=== PATIENT | male | born 1960 | race Two or more races ===

== ENCOUNTER 2023-11-05 06:47 | Day surgery (SDC) | payer OTHER ==
[2023-11-05] VITALS (8 sets, daily range): BP systolic 102–154; BP diastolic 71–92; PULSE 50–67; RESP 13–18; O2SAT 94–98
[~2023-11-05] VITALS: Ht 180.3 cm; Wt 128.8 kg
[~2023-11-05 06:47] MED LIST: CARI-578 PO; FINA5TAB4 PO; GABA-339 PO; GEMF-66 PO; HYDR-4798 PO; IBUP-1456 PO; INSU1.2I SC; LORA-35 PO; LOSA-533 PO; LOVA20TA4 PO; METF-370 PO; MONT-8 PO; NITR0.4S29 SL; PANT40TA2 PO; TERA5CAP42 PO; TOPI25CA5 PO
[2023-11-05] MEDS ORDERED: fentaNYL CITRATE 100 MCG/2 ML VL ONE (08:51)
[2023-11-05] MEDS ORDERED: VERAPAMIL 2.5MG/ML INJ 2ML VIAL IV ONE (08:51)
[2023-11-05] MEDS ORDERED: HEPARIN SODIUM (PORCINE) 5000 UNITS/ML 1ML VIAL ONE (08:51)
[2023-11-05] MEDS ORDERED: ANGIOMAX 250 MG VIAL IV ONE (08:51)
[2023-11-05] MEDS ORDERED: MIDAZOLAM HCL 2MG/2ML 2ml VIAL (1mg/ml) ONE (08:51)
[2023-11-05] MEDS ORDERED: SODIUM CHL 0.9% 50 ML ONE (08:52)
[2023-11-05] MEDS ORDERED: ATROPINE SULF 1 MG/10ml SYR ONE (09:19)
[2023-11-05] MEDS ORDERED: IODIXANOL 320MG/ML 100ML BTL IV ONE (09:23)
[2023-11-30] MEDS ORDERED: FEXO-226 PO (10:01)
[2023-11-30] MEDS ORDERED: CLOP75TA28 PO (10:04)
== END 2023-11-05 12:53 | disposition home or self-care (01) ==
LOC: CATH 06:47
PROVIDERS: ATTEND Internal Medicine
DX: R94.39 Abnormal result of other cardiovascular function study (principal); R07.9 Chest pain, unspecified; I25.118 Atherosclerotic heart disease of native coronary artery with other forms of angina pectoris; I10 Essential (primary) hypertension; E11.9 Type 2 diabetes mellitus without complications; E78.00 Pure hypercholesterolemia, unspecified; Z79.84 Long term (current) use of oral hypoglycemic drugs; Z79.899 Other long term (current) drug therapy; Z96.641 Presence of right artificial hip joint; Z98.890 Other specified postprocedural states; Z87.891 Personal history of nicotine dependence; Z83.3 Family history of diabetes mellitus; Z83.42 Family history of familial hypercholesterolemia; Z82.49 Family history of ischemic heart disease and other diseases of the circulatory system
CPT/HCPCS: 92920; 93005; 93458; C1725; C1769; C1887; C1894; J0583; J2250; J3010; J7030; Q9967; 92928; 99152; 99153

== ENCOUNTER 2023-12-03 06:25 | Day surgery (SDC) | payer OTHER ==
[2023-12-03] VITALS (11 sets, daily range): BP systolic 128–170; BP diastolic 47–88; PULSE 59–79; RESP 12–19; TEMP 99.1; O2SAT 94–98
[~2023-12-03] VITALS: Ht 180.3 cm; Wt 128.4 kg
[~2023-12-03 06:25] MED LIST changes: +CLOP75TA28 PO; +FEXO-226 PO; -LORA-35 PO; -LOSA-533 PO
[2023-12-03] MEDS ORDERED: IODIXANOL 320MG/ML 100ML BTL IV ONE ×2 (07:40→08:50)
[2023-12-03] MEDS ORDERED: HEPARIN IN NS 1000Units/500mL 1,500 ML ONE (07:40)
[2023-12-03] MEDS ORDERED: LIDOCAINE 2%HCL (LOCAL ANESTH.) INJ 20ML MDV ONE (07:40)
[2023-12-03] MEDS ORDERED: MIDAZOLAM HCL 2MG/2ML 2ml VIAL (1mg/ml) ONE (08:08)
[2023-12-03] MEDS ORDERED: ANGIOMAX 250 MG VIAL IV ONE (08:08)
[2023-12-03] MEDS ORDERED: fentaNYL CITRATE 100 MCG/2 ML VL ONE (08:08)
[2023-12-03] MEDS ORDERED: SODIUM CHL 0.9% 50 ML ONE (08:08)
[2023-12-03] MEDS ORDERED: ATROPINE SULF 1 MG/10ml SYR ONE (08:41)
[2023-12-03] MEDS ORDERED: HEPARIN 1,000 UNITS/ml 1ML VIAL ONE (08:48)
[2023-12-03] MEDS ORDERED: HEPARIN SODIUM (PORCINE) 5000 UNITS/ML 1ML VIAL ONE (08:48)
[2023-12-03] MEDS ORDERED: ASPirin 81 mg TAB ONE (09:27)
[2023-12-03] MEDS ORDERED: CLOPIDOGREL BISULFATE 75 MG TAB ONE (09:28)
== END 2023-12-03 16:05 | disposition home or self-care (01) ==
LOC: CATH 06:25
PROVIDERS: ATTEND Internal Medicine
DX: I25.118 Atherosclerotic heart disease of native coronary artery with other forms of angina pectoris (principal); I10 Essential (primary) hypertension; E11.9 Type 2 diabetes mellitus without complications; Z83.3 Family history of diabetes mellitus; Z83.42 Family history of familial hypercholesterolemia; Z82.49 Family history of ischemic heart disease and other diseases of the circulatory system; Z87.891 Personal history of nicotine dependence
CPT/HCPCS: 76937; 93005; C1724; C1725; C1760; C1769; C1874; C1887; C1894; C9602; J0583; J1644; J2250; J3010; Q9967; 99152; 99153

== ENCOUNTER 2025-01-20 06:06 | Inpatient (IN) | payer OTHER ==
[2025-01-20] VITALS (7 sets, daily range): BP systolic 100–137; BP diastolic 68–78; PULSE 88–92; RESP 17–20; TEMP 97.9–98.9; O2SAT 94–98
[~2025-01-20] VITALS: Ht 180.3 cm; Wt 151.0 kg
[~2025-01-20 06:06] MED LIST changes: +ALL300T GT; +ASPI81CH59 PO; +COLC1CAP PO; +TIRZ2.5I SC
[2025-01-20] MEDS: GABAPENTIN 300 MG CAP ONE (06:59)
[2025-01-20] MEDS: CELECOXIB 100 MG CAP ONE (06:59)
[2025-01-20] MEDS: GABAPENTIN 300 MG CAP PO ONE (07:00)
[2025-01-20] MEDS: CELECOXIB 100 MG CAP PO ONE (07:00)
[2025-01-20] MEDS: ACETAMINOPHEN IV 1000 MG/100ML (10MG/ML) IV ONE (07:00)
[2025-01-20] MEDS ORDERED: PROPOFOL 10 MG/ML 20 ML IV ONE ×4 (07:10→09:13)
[2025-01-20] MEDS ORDERED: LIDOCAINE 1% INJ PF 5ML AMP ONE (07:10)
[2025-01-20] MEDS ORDERED: GLYCOPYRROLATE 0.2 MG/ML 1ML VIAL ONE (07:10)
[2025-01-20] MEDS ORDERED: ONDANSETRON HCL 4 MG/2 ML VIAL ONE (07:10)
[2025-01-20] MEDS ORDERED: KETOROLAC TROMETH 30 MG/ML 1ML VIAL ONE (07:10)
[2025-01-20] MEDS ORDERED: DexAMETHasone SOD PHOS 10MG/1ML VIAL INJ ONE ×2 (07:10→07:11)
[2025-01-20] MEDS ORDERED: EPINEPHrine HCL 1 MG/1 ML AMP ONE (07:11)
[2025-01-20] MEDS ORDERED: KETAMINE 50mg/ML 1ml syringe ONE (07:11)
[2025-01-20] MEDS ORDERED: ceFAZolin 1GM VL ONE (07:11)
[2025-01-20] MEDS: ACETAMINOPHEN IV 100 ML IV ONE (07:18)
[2025-01-20] MEDS: ceFAZolin 2 GM/D5W50ml 50 ML IV ONE (07:19)
[2025-01-20] MEDS: CEFEPIME 1GM/ 50ML 50 ML IV ONE (07:19)
[2025-01-20] MEDS: TRANEXAMIC ACID 20 ML ONE (07:20)
[2025-01-20] MEDS ORDERED: ePHEDrine SULFATE 50 MG/ML AMP ONE (07:50)
[2025-01-20] MEDS: VANCOMYCIN HCL 1000 MG VL ONE (07:51)
[2025-01-20] MEDS ORDERED: PHENYLEPHRINE HCL 10 MG/ML VL ONE (08:08)
[2025-01-20] MEDS ORDERED: SODIUM CHLORIDE LOCK 10 ML ONE (08:08)
--- NOTE | 2025-01-20 09:21 | DVH ---
CLINICAL INDICATION: INTRAOP TECHNIQUE: 1 radiographic views of the left hip were obtained. Comparison: None FINDINGS/IMPRESSION: Postsurgical changes from left hip arthroplasty.
--- NOTE | 2025-01-20 09:26 | DVHOP2 ---
Operative Report - 2 Report Details Date: 01/20/25 Preop Diagnosis: Left hip degenerative arthritis Postop Diagnosis: Left hip degenerative arthritis Surgeon: Lon Hartley MD Strategic Accounts Manager: Anthony BARRAGAN Anesthesiologist: Willian Boland CRNA Anesthesia: Regional Drains: Alejandra closed wound suction Implant: enovis size six nebula stem, plus four neck with 36 ceramic head, flat polyethylene liner, 52 acetabular shell Consent: The patient was informed of the risks and benefits of the procedure. These include but are not limited to complications of anesthesia, postoperative infection, incomplete relief of symptoms, recurrence of symptoms, damage to blood vessels, nerves and tendons, deep venous thrombosis, pulmonary embolism and possible need for repeat surgery in the future. Complications: None Estimated Blood Loss: 100 cc Fluids: See anesthesia record Findings: Head deformity, osteophytes, denuded cartilage with eburnated bone Indications for Surgery: Left hip degenerative arthritis with severe pain and functional impairment despite nonoperative management Name of Procedure Performed Left total hip arthroplasty Procedure Details Procedure Details: The patient was brought to the operating room and given spinal anesthetic with adequate analgesia obtained. The patient was positioned lateral decubitus with the operative side up, stabilized with hip positioners. Axillary roll applied and lower extremities well-padded. Preop patient received IV Ancef, cefepime and IV tranexamic acid. Surgical timeout was performed verifying patient, laterality and procedure. The hip and lower extremity were prepped and draped in sterile fashion. Incision was made over the greater trochanter. Subcutaneous dissection and hemostasis were performed with Bovie and aqua mantis. I identified the fascia which was incised with Bovie and Charnley retractor inserted. I identified the gluteus medius that was split at the junction of its anterior and middle thirds with Bovie then incised off the ant erior greater trochanter. I incised the anterior gluteus minimus which was elevated off the capsule. I elevated the reflected head of the rectus. I then performed anterior capsulectomy with Bovie. I extended capsular incision posterior medially and superior laterally. The head was dislocated. Femoral neck cut was made with saw and head removed. Head diameter was calipered on the back table. I adjusted retractors to expose the acetabulum. I circumferentially removed labral tissue with Bovie. I removed foveal tissue with Bovie, curette and rongeur. I then began reaming sequentially paying attention to inclination and version as I went. I trialed which was stable so acetabular implant was brought into the field and tapped into the acetabulum with good fixation achieved. I used the small screw to fill the hole at the insertion point. I then brought up the flat liner which was spun to make sure there was no soft tissue entrapment then tapped in and stability verified. I then brought my attention to the proximal femur. The leg was placed in the sterile bag anteriorly. I cleaned up soft tissue at the greater trochanter mou ldlester with Bovie. I then used a rongeur to clip the lateral neck. I then used a box osteotome, canal finder and lateralizing rasp. I sequentially broached to size 5. I revised the femoral neck cut with calcar planer. I trialed with a 0 and plus four neck length and [36] head which was stable with the plus four. Intraoperative AP pelvis x-ray was obtained to verify length, offset and implant size. It was a touch long in the stem a bit small so I decided to up size the stem. The hip was dislocated. I used a five broach to tap it a little bit deeper and then again used a calcar planer. Broach was removed. I tapped in the size six femoral implant with good fixation achieved. I cleaned and dried the Mena taper and tapped on the ceramic head with the plus four neck after 1st trialing with a 0 and plus four neck length. The hip was not stable with a 0 neck.. The hip was again reduced and again tested for stability which was good. I irrigated with biosurge. I placed a 2 grams of vancomycin in the deep and superficial wound. I repaired the minimus and medius to the anterior greater trochanter with #[5] FiberWire in running fashion . I oversewed the repair with 0 Vicryl. I repaired the fascia with #1 Ethibond interrupted [id number]. Deep subcutaneous tissue was closed with 0 Vicryl. Superficial subcutaneous tissue was closed with 2-0 Vicryl. The skin was closed with corazon. I then applied the Alejandra closed wound suction. Patient tolerated the procedure well and was brought to the recovery room in stable condition. Condition Stable Disposition Still a Patient LON HARTLEY MD Jan 20, 2025 09:26
[2025-01-20] MEDS ORDERED: NITROGLYCERIN 0.4 MG SL TAB SL SCH (09:30)
[2025-01-20] MEDS ORDERED: MORPHINE SULFATE INJ 2 MG/ml SYRG IV PRN (09:30)
[2025-01-20] MEDS ORDERED: DEXTROSE (50%) 50ML SYRG IV PRN (09:30)
[2025-01-20] MEDS ORDERED: ONDANSETRON HCL 4 MG/2 ML VIAL IV PRN ×2 (09:30→10:00)
[2025-01-20] MEDS ORDERED: NITROGLYCERIN 0.4 MG SL TAB SL PRN (09:30)
[2025-01-20] MEDS ORDERED: HYDROmorphone HCL 2 MG/ML VL/or syr IV PRN (10:00)
[2025-01-20] MEDS ORDERED: fentaNYL CITRATE 100 MCG/2 ML VL IV PRN (10:00)
[2025-01-20] MEDS ORDERED: hydrALAZINE HCL 20 MG/ML VL IV PRN (10:00)
[2025-01-20] MEDS: FEXOFENADINE HCL 60 MG TAB PO SCH (10:00)
[2025-01-20] MEDS ORDERED: ePHEDrine SULFATE 50 MG/ML AMP IV PRN (10:00)
[2025-01-20] MEDS ORDERED: NALOXONE HCL 0.4 MG/ML VIAL IV PRN (10:00)
[2025-01-20] MEDS ORDERED: FLUMAZENIL 0.1 MG/ML INJ 10ML MDV IV PRN (10:00)
--- NOTE | 2025-01-20 10:25 | DVH ---
CLINICAL INDICATION: postop TECHNIQUE: 2 radiographic views of the pelvis were obtained. Comparison: None FINDINGS/IMPRESSION: There is no evidence of acute fracture or dislocation. Status post bilateral hip arthroplasty.
[2025-01-20] MEDS: ACCU-CHEK COMFORT CURVE STRIP VI SCH (11:00)
[2025-01-20] MEDS: PREGABALIN 25 MG CAP PO SCH (11:02)
[2025-01-20] MEDS: oxyCODONE HCL 5MG TAB PO PRN ×3 (11:04→17:27)
[2025-01-20] MEDS: oxyCODONE HCL 5MG TAB ONE (11:09)
[2025-01-20] MEDS: SODIUM CHLORIDE 0.9% 1,000 ML IV SCH (11:30)
[2025-01-20] MEDS: ACETAMINOPHEN 325 MG TAB PO SCH (12:00)
[2025-01-20] MEDS: InsuLIN REG 1unit/0.01ml Soln (100units/ml) SC SCH ×2 (12:52→22:34)
[2025-01-20] MEDS: FINASTERIDE 5 MG TAB PO SCH (15:15)
[2025-01-20] MEDS: PANTOPRAZOLE 40 MG TAB PO SCH (15:16)
[2025-01-20] MEDS: KETOROLAC TROMETH 30 MG/ML 1ML VIAL IV SCH (15:17)
[2025-01-20] MEDS: ceFAZolin 2 GM/D5W50ml 50 ML IV SCH (15:18)
[2025-01-20] MEDS: GEMFIBROZIL 600 MG TAB PO SCH (15:19)
[2025-01-20] MEDS: metFORMIN HYDROCHLORIDE 500 MG TAB PO SCH (17:33)
[2025-01-20] MEDS: HYDROmorphone HCL 2 MG/ML VL/or syr IV PRN (20:44)
[2025-01-20] MEDS: TERAZOSIN HCL 5 MG CAP PO SCH (22:26)
[2025-01-20] MEDS: MONTELUKAST SODIUM 10 MG TAB PO SCH (22:26)
[2025-01-21] VITALS (8 sets, daily range): BP systolic 130–157; BP diastolic 56–68; PULSE 66–76; RESP 18–19; TEMP 97.8–98.8; O2SAT 94–98
[2025-01-21 06:01] LABS: Basophils # (auto) 0.1 10 ^3/uL (0-0.2); Basophils % (auto) 0.4 % (0.0-2.0); Eosinophils # (auto) 0 10 ^3/uL (0-0.8); Hematocrit 30.8 % (41.0-53.0); Hemoglobin 10.2 g/dL (13.5-17.5); Lymphocytes # (auto) 1.5 10 ^3/uL (0.4-5.4); Lymphocytes % (auto) 11.1 % (10.0-50.0); Mean Corpuscular Hemoglobin 27.4 pg (28.0-32.0); Monocytes # (auto) 1.3 10 ^3/uL (0-1.3); Monocytes % (auto) 9.7 % (0.0-12.0); Neutrophils # (auto) 10.8 10 ^3/uL (1.6-8.6); Neutrophils % (auto) 78.8 % (37.0-80.0); Platelet Count (auto) 294 10^3/uL (140-450); Red Cell Distribution Width 14.5 % (11.8-14.3); White Blood Cell 13.7 10^3/uL (4.4-10.8)
[2025-01-21 06:13] LABS: Potassium 4.1 mmol/L (3.5-5.1); Sodium 140 mmol/L (136-145)
[2025-01-21 06:14] LABS: Anion Gap 12 (5-15)
[2025-01-21 06:20] LABS: BUN/Creatinine Ratio 14.9 (10.0-20.0); Blood Urea Nitrogen 20 mg/dL (9-23)
[2025-01-21 06:23] LABS: Carbon Dioxide 20 mmol/L (20-31); Chloride 108 mmol/L (98-107); Glucose 121 mg/dL (74-106)
[2025-01-21 06:24] LABS: Calcium 8.5 mg/dL (8.7-10.4)
[2025-01-21] MEDS ORDERED: oxyCODONE HCL 5MG TAB PO PRN (08:30)
[2025-01-21] MEDS: APIXABAN 2.5 MG TAB PO SCH (09:24)
[2025-01-21] MEDS: ALLOPURINOL 100 MG TAB PO SCH (09:24)
[2025-01-21] MEDS: HYDROmorphone HCL 2 MG/ML VL/or syr IV PRN (09:40)
[2025-01-21] MEDS ORDERED: ALLOPURINOL 100 MG TAB GT SCH (10:00)
--- NOTE | 2025-01-21 16:54 | DVHINCON2 ---
Date Seen: Jan 21, 2025 Referring Physician Orthopedic surgeon. Reason for Consultation Medical management. History of Present Illness 64-year-old male with a known history of coronary artery disease with a status post PCI to RCA with three stents, hypertension, dyslipidemia, insulin-dependent diabetes mellitus type 2, BPH, history of gout who was brought in by orthopedics for elective surgery for left hip. Patient does have known history of left hip degenerative joint disease. Patient underwent successful left total hip arthroplasty. Patient currently denies any complaints besides hip pain. Past Medical History Insulin-dependent diabetes mellitus type 2 Hypertension Dyslipidemia Gout CAD status post PCI to RCA with three stents. Past Surgical History Coronary artery disease status post PCI to RCA with three stents Status post right hip arthroplasty in the past Left FERNANDA this admission. Family History: FH: cancer G8 FATHER Allergies: Coded Allergies: Morphine (Verified Allergy, Unknown, hypotension, 11/30/23) Home Meds Reported Medications Tirzepatide (Mounjaro) 2.5 Mg/0.5 Ml Inj, 2.5 MG SC QWEEKLY, INJ 01/16/25 Aspirin (Aspirin Low Dose) 81 Mg Chw, 81 MG PO DAILY, TAB.CHEW 01/16/25 Colchicine (Colchicine) 0.6 Mg Cap, 0.6 MG PO BID, CAP 01/16/25 Allopurinol (ZYLOPRIM TABLET) 300 Mg Tb, 300 MG GT DAILY, TAB 01/16/25 Clopidogrel Bisulfate (Plavix) 75 Mg Tab, 1 TAB PO DAILY for CAD, #90 TAB 1 Refill 11/30/23 Fexofenadine Hcl (Fexofenadine Hcl) 60 Mg Tab, 60 MG PO BID for ALLERGIES, MG 11/30/23 Pantoprazole Sodium Sesquihydr (Protonix) 40 Mg Tab, 40 MG PO DAILY for GERD 11/02/23 Topiramate (Topiramate) 25 Mg Cap, 25 MG PO BID for MIGRAINE 11/02/23 Montelukast Sodium (MONTELUKAST SODIUM) 10 Mg Tab, 1 TAB PO DAILY for ALLERGIES 11/02/23 Finasteride (Finasteride) 5 Mg Tab, 5 MG PO DAILY for BPH 11/02/23 Terazosin Hcl (Terazosin Hcl) 5 Mg Cap, 5 MG PO HS for BPH 11/02/23 Insulin Glargine (Toujeo Solostar) 300 Unit/Ml Inj, 100 UNIT SC BID for DIABETES, INJ 11/02/23 Ibuprofen (Ibuprofen) 800 Mg Tab, 800 MG PO PRN, MG 11/02/23 Lovastatin (Lovastatin) 20 Mg Tab, 1 TAB PO DAILY for HIGH CHOLESTEROL 11/02/23 Metformin Hydrochloride (Metformin Hcl) 500 Mg Tab, 1 TAB PO BID for DIABETES 11/02/23 Gabapentin (Gabapentin) 600 Mg Tab, 600 MG PO TID for NEUROPATHY 11/02/23 Hydrocodone-Acetaminophen (Hydrocodone Bitartrate/AC 10-325 mg) 1 Tab Tab, 1 TAB PO Q6HP PRN for MODERATE PAIN (4-6 PAIN SCALE) 11/02/23 Carisoprodol (Carisoprodol) 350 Mg Tab, 350 MG PO Q6HR for MUSCLE RELAXANT 11/02/23 Gemfibrozil (Gemfibrozil) 600 Mg Tab, 600 MG PO BID for HIGH CHOLESTEROL 11/02/23 Nitroglycerin (NTROSTAT SUBLINGUAL) 0.4 Mg Sl, 0.4 MG SL PRN, TAB *MAY REPEAT EVERY 5 MINUTES X 3 TOTAL IF NO RELIEF, INITIATE ANALGESIC THERAPY. NOTIFY PHYSICIAN *Do not crush. 11/02/23 Current Medications Current Medications Medications (Trade) Dose Ordered Sig/Virgilio Route PRN Reason Start Time Stop Time Status Last Admin Metformin HCl (Glucophage) 500 mg BIDD PO 01/20/25 18:00 01/21/25 06:13 Montelukast Sodium (Singulair Tablet) 10 mg HS PO 01/20/25 22:00 01/20/25 22:26 Terazosin HCl (Hytrin) 5 mg HS PO 01/20/25 22:00 01/20/25 22:26 Apixaban (Eliquis) 2.5 mg BID PO 01/21/25 10:00 02/25/25 09:59 01/21/25 09:24 Insulin Human Regular (InsuLIN R) HS SC 01/20/25 22:00 01/20/25 22:34 Allopurinol (Zyloprim Tablet) 300 mg DAILY GT 01/21/25 10:00 01/20/25 12:37 DC Allopurinol (Zyloprim Tablet) 300 mg DAILY PO 01/21/25 10:00 01/21/25 09:24 Hydromorphone HCl (Dilaudid Injection) 1 mg Q2HPRN PRN IV SEVERE PAIN (7-10 PAIN SCALE) 01/20/25 20:30 01/21/25 08:27 DC 01/21/25 06:16 Hydromorphone HCl (Dilaudid Injection) 1 mg Q4HPRN PRN IV SEVERE PAIN (7-10 PAIN SCALE) 01/21/25 08:30 01/21/25 15:39 Oxycodone HCl 10 mg Q4HP PRN PO SEVERE PAIN (7-10 PAIN SCALE) 01/21/25 08:30 Review of Systems Twelve review of system were negative except mentioned above. 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 Labs/Diagnostic Data Labs Test 01/21/25 11:55 01/21/25 05:05 Range/Units POC Glucose 98 70-106 mg/dl White Blood Count 13.7 H 4.4-10.8 10^3/uL Red Blood Count 3.70 L 4.5-5.90 10^6/uL Hemoglobin 10.2 L 13.5-17.5 g/dL Hematocrit 30.8 L 41.0-53.0 % Mean Corpuscular Volume 83.0 80.0-100.0 fL Mean Corpuscular Hemoglobin 27.4 L 28.0-32.0 pg Mean Corpuscular Hemoglobin Concent 33.0 32.0-36.0 g/dL Red Cell Distribution Width 14.5 H 11.8-14.3 % Platelet Count 294 140-450 10^3/uL Mean Platelet Volume 7.2 6.9-10.8 fL Neutrophils (%) (Auto) 78.8 37.0-80.0 % Lymphocytes (%) (Auto) 11.1 10.0-50.0 % Monocytes (%) (Auto) 9.7 0.0-12.0 % Eosinophils (%) (Auto) 0.0 0.0-7.0 % Basophils (%) (Auto) 0.4 0.0-2.0 % Neutrophils # (Auto) 10.8 H 1.6-8.6 10 ^3/uL Lymphocytes # (Auto) 1.5 0.4-5.4 10 ^3/uL Monocytes # (Auto) 1.3 0-1.3 10 ^3/uL Eosinophils # (Auto) 0 0-0.8 10 ^3/uL Basophils # (Auto) 0.1 0-0.2 10 ^3/uL Nucleated Red Blood Cells 0.0 % Sodium Level 140 136-145 mmol/L Potassium Level 4.1 3.5-5.1 mmol/L Chloride Level 108 H 98-107 mmol/L Carbon Dioxide Level 20 20-31 mmol/L Anion Gap 12 5-15 Blood Urea Nitrogen 20 9-23 mg/dL Creatinine 1.34 H 0.700-1.30 mg/dL Glomerular Filtration Rate Calc 60 >90 mL/min BUN/Creatinine Ratio 14.9 10.0-20.0 Serum Glucose 121 H 74-106 mg/dL Calcium Level 8.5 L 8.7-10.4 mg/dL Assessment 64-year-old male with a known history of CAD status post PCI to RCA three stents, hypertension, insulin-dependent diabetes mellitus type 2, dyslipidemia, history of gout, BPH who was brought in by orthopedics for elective left total hip arthroplasty. 1. Coronary artery disease status post PCI to RCA with three stents in the past 2. Hypotension 3. Insulin-dependent diabetes mellitus type 2 4. Dyslipidemia 5. History of gout 6. BPH 7. Degenerative joint disease of the left hip status post left total hip arthroplasty. -pain meds as needed, physical therapy evaluation and treatment Resume home medication Discharge plan per Orthopedics. Plan discussed with: Patient, Other Date of Service: Jan 21, 2025 Billing Provider: ANDRE REDDING MD Common Visit Codes: NOT BILLABLE ANDRE REDDING MD Jan 21, 2025 16:54
--- NOTE | 2025-01-21 20:16 | DVHPN2 ---
Progress Note Progress Note S: Patient seen and examined. Pain well controlled 03/08 today. Denies chest or shortness of breath. Denies numbness, paresthesias or weakness. O: AFVSS Exam: NAD, a+ox4, unlabored breathing LLE: dressings c/d/I; fires Q/HS/EHL/FHL/TA/GS muscles; SILT L3-S1; BCR; 2+ DP and PT pulses; BCR A/P: POD#1 s/p L FERNANDA -IV ABX x 24 hours -DVT ppx: SCDs; Blood thinner as prescribed per protocol -Pain control with hospitalist -WBAT, posterior hip precaution Did physical therapy today The patient will be ready to be discharged once pain is controlled , possible tomorrow Plan discussed with: Patient Visit Coding Surgery Date of Service if different f: Jan 21, 2025 Billing Provider: MASSIMO JACOBSEN Surgery Visit Codes: [id number] INP/OBS CARE(MOD) MASSIMO JACOBSEN Jan 21, 2025 20:15
[2025-01-22] VITALS (7 sets, daily range): BP systolic 108–159; BP diastolic 52–72; PULSE 70–79; RESP 18–19; TEMP 97.6–98.4; O2SAT 94–98
--- NOTE | 2025-01-22 10:46 | DVHPN2 ---
Progress Note - Dictate Date Seen: Jan 22, 2025 Medical Necessity Reason Pt with a Central, PICC or Fol: Yes The following are medically ne: Edgar Catheter Subjective Patient was lying comfortably in bed during my evaluation reports some postoperative hip pain that is being well managed with the help of pain medication. Patient notes that his pain is better controlled today than yesterday and was able to get up and walk with the help of physical therapy and his walker and was able to get down the villarreal right to the nurse's station and back to his room with some postoperative hip pain. Patient was otherwise feeling well denying any other complaint or concern during my evaluation and is ready to go home. vital signs Vital Sign Date Time Temp Pulse Resp B/P (MAP) Pulse Ox O2 Delivery O2 Flow Rate FiO2 01/22/25 08:36 97.6 79 18 108/72 (84) 96 97.6 01/22/25 08:00 Room Air* 0 21 Total Intake and Output 01/21/25 01/21/25 01/22/25 14:59 22:59 06:59 Intake Total 2410 ml 650 ml Output Total 100 ml 1650 ml Balance 2310 ml -1000 ml medications Current Medications Medications Dose Ordered Sig/Virgilio Route Start Time Stop Time Status Last Admin Dose Admin Fexofenadine HCl 60 mg BID PO 01/20/25 10:00 01/21/25 23:44 60 MG Finasteride 5 mg DAILY PO 01/20/25 10:00 01/22/25 08:20 5 MG Gemfibrozil 600 mg BID PO 01/20/25 10:00 01/22/25 08:21 600 MG Metformin HCl 500 mg BIDD PO 01/20/25 18:00 01/22/25 06:46 500 MG Montelukast Sodium 10 mg HS PO 01/20/25 22:00 01/21/25 23:45 10 MG Pantoprazole Sodium 40 mg DAILY PO 01/20/25 10:00 01/22/25 08:20 40 MG Terazosin HCl 5 mg HS PO 01/20/25 22:00 01/21/25 23:42 5 MG Patient Own Medication 300 mg DAILY GT 01/20/25 10:00 UNV Pregabalin 50 mg BID PO 01/20/25 10:00 01/22/25 08:28 50 MG Apixaban 2.5 mg BID PO 01/21/25 10:00 02/25/25 09:59 01/22/25 08:20 2.5 MG Sodium Chloride 1,000 ml @ 125 mls/hr Q8H IV 01/20/25 11:30 01/22/25 04:56 125 MLS/HR Acetaminophen 650 mg Q6HP PO 01/20/25 12:00 01/22/25 06:49 650 MG Ketorolac Tromethamine 15 mg Q6HR IV 01/20/25 12:00 01/25/25 11:59 01/21/25 23:43 15 MG Ondansetron HCl 4 mg Q4HP PRN IV 01/20/25 09:30 Oxycodone HCl 5 mg Q4HP PRN PO 01/20/25 11:30 01/22/25 06:50 5 MG Nitroglycerin 0.4 mg Q5MINP PRN SL 01/20/25 09:30 Morphine Sulfate 2 mg Q30M PRN IV 01/20/25 09:30 Hold Diagnostic Test (Pha) 1 strip ACHS 01/20/25 11:30 01/22/25 06:55 1 STRIP Insulin Human Regular HS SC 01/20/25 22:00 01/20/25 22:34 2 UNITS Insulin Human Regular AC SC 01/20/25 11:30 01/20/25 17:58 6 UNITS Dextrose 50 ml UD PRN IV 01/20/25 09:30 Allopurinol 300 mg DAILY PO 01/21/25 10:00 01/22/25 08:19 300 MG Hydromorphone HCl 1 mg Q4HPRN PRN IV 01/21/25 08:30 01/22/25 08:30 1 MG Oxycodone HCl 10 mg Q4HP PRN PO 01/21/25 08:30 objective A&O x4 in no acute distress Hip range of motion grossly limited with pain on movement Alejandra dressing clean, dry, intact, and maintaining suction No distal edema or calf tenderness to palpation Neurovascularly intact with cap refill less than 2 seconds laboratory and microbiology Laboratory Tests 01/21/25 05:05 Test 01/21/25 05:05 Range/Units Serum Glucose 121 H 74-106 mg/dL Assessment/Plan Patient to be discharged home and advised to remain weight-bearing as tolerated with the assistance of a walker. Edgar to be removed. I instructed the patient to maintain his dressing clean, dry, intact, and maintaining suction and to follow up with our office in 10-14 days for his 1st postoperative evaluation. I also instructed the patient to call our office if he has any remaining questions or concerns. Rx sent via our outpatient EMR system. Patient understood and agreed. Plan discussed with: Patient ALFREDA ALMANZA Jan 22, 2025 10:46
--- NOTE | 2025-01-22 10:48 | DVHDS2 ---
Discharge Summary Date of Admission Jan 20, 2025 at 11:28 Date of Discharge: Jan 22, 2025 Labs/Diagnostic Data: Laboratory Results Test 01/22/25 06:54 01/21/25 05:05 POC Glucose 76 mg/dl (70-106) White Blood Count 13.7 10^3/uL (4.4-10.8) Red Blood Count 3.70 10^6/uL (4.5-5.90) Hemoglobin 10.2 g/dL (13.5-17.5) Hematocrit 30.8 % (41.0-53.0) Mean Corpuscular Volume 83.0 fL (80.0-100.0) Mean Corpuscular Hemoglobin 27.4 pg (28.0-32.0) Mean Corpuscular Hemoglobin Concent 33.0 g/dL (32.0-36.0) Red Cell Distribution Width 14.5 % (11.8-14.3) Platelet Count 294 10^3/uL (140-450) Mean Platelet Volume 7.2 fL (6.9-10.8) Neutrophils (%) (Auto) 78.8 % (37.0-80.0) Lymphocytes (%) (Auto) 11.1 % (10.0-50.0) Monocytes (%) (Auto) 9.7 % (0.0-12.0) Eosinophils (%) (Auto) 0.0 % (0.0-7.0) Basophils (%) (Auto) 0.4 % (0.0-2.0) Neutrophils # (Auto) 10.8 10 ^3/uL (1.6-8.6) Lymphocytes # (Auto) 1.5 10 ^3/uL (0.4-5.4) Monocytes # (Auto) 1.3 10 ^3/uL (0-1.3) Eosinophils # (Auto) 0 10 ^3/uL (0-0.8) Basophils # (Auto) 0.1 10 ^3/uL (0-0.2) Nucleated Red Blood Cells 0.0 % Sodium Level 140 mmol/L (136-145) Potassium Level 4.1 mmol/L (3.5-5.1) Chloride Level 108 mmol/L (98-107) Carbon Dioxide Level 20 mmol/L (20-31) Anion Gap 12 (5-15) Blood Urea Nitrogen 20 mg/dL (9-23) Creatinine 1.34 mg/dL (0.700-1.30) Glomerular Filtration Rate Calc 60 mL/min (>90) BUN/Creatinine Ratio 14.9 (10.0-20.0) Serum Glucose 121 mg/dL (74-106) Calcium Level 8.5 mg/dL (8.7-10.4) Other Laboratory Tests 01/21/25 05:05 Brief Hx & Hospital Course: Patient was brought to the hospital on Sunday to undergo a left total hip arthroplasty. He tolerated the procedure well without complications and was kept overnight for postoperative observation. Patient remained medically stable but was experiencing severe postoperative hip pain that was limiting his physical activity and ambulation. Pain has been much better controlled today and patient reports that he was able to get up and walk with the help of physical therapy and his walker and was able to get down the villarreal to the nurse's station and back to his room with some postoperative hip pain. Patient was otherwise feeling well denying any other complaint or concern during my evaluation and was ready to go home. Condition at Discharge: Stable Final Diagnosis/Problems List Left hip degenerative arthritis Discharge Disposition: Home Discharge Instruct/Medications Diet: Regular Activity: See Comment Activity comment: Patient advised to remain weight-bearing as tolerated with the assistance of a walker. Follow Up/Referral: I instructed the patient to follow up with our office in 10-14 days for his 1st postoperative evaluation Medications: Sent via our outpatient EMR system Discharge Statement: "Patient was advised to return to the ER or call 911 if any headaches, dizziness, shortness of breath, chest pain, abdominal pain, bleeding, fevers, or worsening of medical condition. Patient was counseled about treatment plan, medications, possible side effects, patientverbalized understanding. All questions were answered to the best of my ability. This discharge took greater then 30 minutes in planning, reviewing documentation, counseling the patient, and discussing with other team members." ASSESSMENT ASSESSMENT Assessment Left hip degenerative arthritis ALFREDA ALMANZA Jan 22, 2025 10:48
== END 2025-01-22 18:11 | disposition home health service (06) | DRG 470 ==
LOC: SUR 06:06 → OVERFLOW 11:28 → WEST WING 11:34
PROVIDERS: ADMIT Orthopaedic Surgery; ATTEND Orthopaedic Surgery
PROC: 0SRB04A Replacement of Left Hip Joint with Ceramic on Polyethylene Synthetic Substitute, Uncemented, Open Approach (ICD-10-PCS; principal; 2025-01-20 07:18)
DX: M16.12 Unilateral primary osteoarthritis, left hip (principal); N40.0 Benign prostatic hyperplasia without lower urinary tract symptoms; E78.5 Hyperlipidemia, unspecified; E11.9 Type 2 diabetes mellitus without complications; I25.10 Atherosclerotic heart disease of native coronary artery without angina pectoris; I10 Essential (primary) hypertension; M10.9 Gout, unspecified; Z79.4 Long term (current) use of insulin; Z98.61 Coronary angioplasty status; Z88.6 Allergy status to analgesic agent; Z79.82 Long term (current) use of aspirin; Z79.84 Long term (current) use of oral hypoglycemic drugs; Z79.899 Other long term (current) drug therapy
CPT/HCPCS: 36415; 72170; 73501; 80048; 82962; 85025; 86850; 86900; 86901; 97110; 97116; 97163; 97530; G0378; J0131; J0171; J0690; J1100; J1815; J1885; J2405; J2704